=== PATIENT | female | born 1960 | race Caucasian/White ===

== ENCOUNTER → 2017-08-03 | Outpatient (CLI) | payer OTHER ==
[~2017-08-03] MED LIST: ACYCLOVIR PO; BIOTIN PO; CYAN1TAB29 PO; IRON CHEWS PO; L-LYSINE PO; MULT-6 PO; OMEGA FISH OIL PO
== END | disposition home or self-care (01) ==
LOC: CFH 13:36
PROVIDERS: ATTEND Internal Medicine
DX: Z12.31 Encounter for screening mammogram for malignant neoplasm of breast (principal); Z13.820 Encounter for screening for osteoporosis; M85.88 Other specified disorders of bone density and structure, other site; M89.9 Disorder of bone, unspecified; N95.1 Menopausal and female climacteric states
CPT/HCPCS: 77063; 77080; G0202

== ENCOUNTER 2019-03-11 08:27 | Outpatient (CLI) | payer OTHER | END 2019-03-11 23:59 | disposition home or self-care (01) | LOC: CFH 08:27 | PROVIDERS: ATTEND Internal Medicine | DX: N20.0 Calculus of kidney (principal) | CPT/HCPCS: 76770 ==